=== PATIENT | female | born 1985 | race Caucasian/White ===

== ENCOUNTER 2017-06-30 08:00 | Outpatient (CLI) | payer OTHER ==
[2017-06-30 12:32] LABS: ALBUMIN 4.5 g/dL (3.2-5.5); ALBUMIN/GLOBULIN RATIO 1.8 (1.0-2.2); BILIRUBIN,TOTAL 0.4 mg/dL (0.2-1.0); CALCIUM 8.9 mg/dL (8.5-10.3); CREATININE 0.7 mg/dL (0.4-1.0)
[2017-06-30 12:41] LABS: BASOPHILS % (AUTO) 0.3 %; EOSINOPHILS # (AUTO) 0.1 10^3/uL (0.0-0.7); EOSINOPHILS % (AUTO) 1.2 %; HGB - HEMOGLOBIN 14.1 g/dL (12.0-16.0); LYMPHOCYTES # (AUTO) 1.5 10^3/uL (1.5-3.5); LYMPHOCYTES % (AUTO) 22.8 %; MEAN CORPUSCULAR HEMOGLOBIN 29.3 pg (27.0-31.0); MEAN CORPUSCULAR HGB CONC 32.6 g/dL (32.0-36.0); MEAN CORPUSCULAR VOLUME 89.7 fL (81.0-99.0); MONOCYTES # (AUTO) 0.4 10^3/uL (0.0-1.0); MONOCYTES % (AUTO) 6.6 %; NEUTROPHILS # (AUTO) 4.5 10^3/uL (1.5-6.6); NEUTROPHILS % (AUTO) 69.1 %; PLT - PLATELET COUNT 288 10^3/uL (130-450); RED BLOOD COUNT 4.82 10^6/uL (4.20-5.40); RED CELL DISTRIBUTION WIDTH 14.3 % (12.0-15.0); WHITE BLOOD COUNT 6.4 x10^3/uL (4.8-10.8)
[2017-06-30 12:46] LABS: T4 (THYROXINE) 6.04 ug/dL (6.09-12.23)
[2017-06-30 12:48] LABS: THYROID STIMULATING HORMONE 1.38 uIU/mL (0.34-5.60)
[2017-06-30 12:51] LABS: INR 1.1 (0.8-1.2); PT - PROTHROMBIN TIME 12.1 secs (9.9-12.6)
[2017-06-30 12:55] LABS: TOTAL T3 1.01 ng/mL (0.87-1.78)
== END 2017-06-30 08:01 | disposition home or self-care (01) ==
LOC: LAB.N 08:00
PROVIDERS: ATTEND Physician Assistant
DX: D47.3 Essential (hemorrhagic) thrombocythemia (principal); R42 Dizziness and giddiness; E55.9 Vitamin D deficiency, unspecified
CPT/HCPCS: 36415; 80053; 82306; 82607; 84207; 84436; 84443; 84480; 85025; 85610

== ENCOUNTER 2017-07-22 07:38 | Outpatient (CLI) | payer OTHER ==
--- NOTE | 2017-07-22 09:06 | MRI Preliminary Report ---
Exam: MRI BRAIN W/O IMPRESSION: 1. No acute abnormalities. No acute infarct, acute intracranial hemorrhage, midline shift or hydrocep halus. 2. Right lateral temporal encephalomalacia with susceptibility artifact, presumably from prior hemorr paxton or trauma. 3. Small focus of hemosiderin deposition in the posterior inferior right temporal occipital lobe, pre sumably from prior parenchymal microhemorrhage. 4. Lack of normal flow signal void in the right transverse sinus and sigmoid sinus bowel susceptibili ty possibly represents prior dural venous sinus thrombosis with partial recanalization versus hypopla gm/slow flow. Consider contrast enhanced MRI of the brain to evaluate for residual thrombus in the d ural venous sinus. Comparison with previous imaging (CT/MRI/angiogram) would be useful when available . 5. The superior sagittal sinus, straight sinus, left transverse sinus and left sigmoid sinus appear p atent on noncontrast MRI. [facility] SITE ID: [id number]
--- NOTE | 2017-07-22 09:19 | MRI Report ---
EXAM: MRI BRAIN WITHOUT CONTRAST EXAM DATE: 07/22/2017 08:44 AM. 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 COMPARISON: None available. TECHNIQUE: Multiplanar, multisequence T1-weighted and fluid-sensitive MR sequences of the brain were performed. Sequences optimized for routine evaluation. Other: None. IV Contrast: None. FINDINGS: There is encephalomalacia in the anterolateral right temporal lobe, most suspicious for prior hemorrh age. Small focus of susceptibility and T2 hypointensity seen in the posterior inferior right temporo-occip ital lobe (axial image 10 series 801 and coronal image 22 series 901), presumably from prior hemorrha ge. No acute infarct, midline shift or hydrocephalus. Flow void for the superior sagittal sinus, left transverse sinus, left sigmoid sinus appear normal. L ack of normal flow void for the right transverse sinus and right sigmoid sinus may represent prior si nus thrombosis with partial recanalization versus hypoplasia/slow flow. Orbits, optic nerve sheath complex, optic chiasm, pituitary, cavernous sinus and Meckel's cave appear normal. Marrow signal and extracranial soft tissue appear unremarkable. Scattered T2 hyperintensities in the posterior right mastoid air cells, possibly chronic mastoid effu florecita. Craniocervical junction and visualized upper cervical cord appear normal. Paranasal sinuses and masto id air cells are unremarkable. IMPRESSION: 1. No acute abnormalities. No acute infarct, acute intracranial hemorrhage, midline shift or hydrocep halus. 2. Right lateral temporal encephalomalacia with susceptibility artifact, presumably from prior hemorr paxton or trauma. 3. Small focus of hemosiderin deposition in the posterior inferior right temporo-occipital lobe, pres umably from prior parenchymal microhemorrhage. 4. Lack of normal flow signal void in the right transverse sinus and sigmoid sinus without susceptibi lity possibly represents prior dural venous sinus thrombosis with partial recanalization versus hypop lasia/slow flow. Consider contrast-enhanced MRI of the brain to evaluate for residual thrombus in the dural venous sinus. Comparison with previous imaging (CT/MRI/angiogram) would be useful when availab le. 5. The superior sagittal sinus, straight sinus, left transverse sinus and left sigmoid sinus appear p atent on noncontrast MRI. [facility] Referring Provider Line: [phone] SITE ID: [id number]
== END 2017-07-22 07:39 | disposition home or self-care (01) ==
LOC: DI 07:38
PROVIDERS: ATTEND Family Medicine
DX: G93.89 Other specified disorders of brain (principal)
CPT/HCPCS: 70551

== ENCOUNTER 2017-07-27 10:44 | Outpatient (CLI) | payer OTHER ==
[2017-07-27 20:05] LABS: FOLLICLE STIMULATING HORMONE 7.37 mIU/mL
[2017-07-27 20:06] LABS: LUTEINIZING HORMONE 7.25 mIU/mL
== END 2017-07-27 10:45 | disposition home or self-care (01) ==
LOC: LAB.N 10:44
PROVIDERS: ATTEND Obstetrics & Gynecology
DX: E28.2 Polycystic ovarian syndrome (principal)
CPT/HCPCS: 36415; 83001; 83002

== ENCOUNTER 2017-08-17 15:04 | Outpatient (CLI) | payer OTHER ==
--- NOTE | 2017-08-18 12:26 | Ultrasound Report ---
PELVIC ULTRASOUND: 08/17/2017 CLINICAL INDICATION: Polycystic ovary syndrome. TECHNIQUE: Transabdominal pelvic ultrasound performed for global evaluation. Transvaginal pelvic ultrasound performed for detailed evaluation. Real-time scanning performed and static images obtained. FINDINGS: The uterus is anteverted, measuring 8.4 x 4.9 x 3.8 cm. The endometrium measures 5 mm. An IUD is noted within the endometrial canal. A subserosal 1.8 x 2.0 x 1.2 cm leiomyoma is noted in the anterior myometrium. The right ovary measures 3.2 x 2.0 x 1.9 cm, and demonstrates follicles. The left ovary measures 3.3 x 2.6 x 2.5 cm, and demonstrates follicles. Trace free fluid is noted in the cul-de-sac. IMPRESSION: ANTERIOR SUBSEROSAL LEIOMYOMA. INTRAUTERINE DEVICE IN PLACE. NORMAL APPEARANCE OF THE OVARIES. TD: 08/18/2017 12:24
== END 2017-08-17 15:05 | disposition home or self-care (01) ==
LOC: DI 15:04
PROVIDERS: ATTEND Obstetrics & Gynecology
DX: E28.2 Polycystic ovarian syndrome (principal); D25.2 Subserosal leiomyoma of uterus; Z97.5 Presence of (intrauterine) contraceptive device
CPT/HCPCS: 76830; 76856

== ENCOUNTER 2017-08-19 13:42 | Outpatient (CLI) | payer OTHER ==
[2017-08-19] MEDS ORDERED: GADOBUTROL 7.5 MMOL/7.5 ML SYRINGE ONE (14:00)
[2017-08-19] MEDS ORDERED: GADOBUTROL 7.5 MMOL/7.5 ML SYRINGE IVP ONE (14:31)
--- NOTE | 2017-08-20 03:51 | MRI Report ---
EXAM: MRI BRAIN WITH CONTRAST EXAM DATE: 08/19/2017 02:34 PM. CLINICAL HISTORY: Migraine headaches. Right temporal abnormality. COMPARISON: Noncontrast brain MRI from 07/22/2017 and outside brain MRI from 02/23/2015. TECHNIQUE: Multiplanar T1-weighted postcontrast images of the brain were obtained after intravenous a dministration of 7.5 mL of Gadavist. Additional noncontrast brain MRI images were obtained of the fol lowing sequences: DWI, ADC map, and GRE. FINDINGS: Brain Volume: Right temporal volume loss is again demonstrated. Brain volume in the remainder of the brain is normal. Parenchyma: Right temporal encephalomalacia with mild surrounding gliosis and evidence of old hemorrh age is stable. No interval hemorrhage is evident on the GRE sequence compared to the brain MRI from 0 07/22/2017. After contrast administration, no abnormal brain parenchymal enhancement is appreciated. Ventricles/Cisterns: No hydrocephalus. No abnormal extra-axial fluid collection or hemorrhage. Orbits: Symmetric and unremarkable. Sella Turcica: The pituitary gland, cavernous sinuses, suprasellar cistern and optic chiasm are unrem arkable. IAC: No abnormal enhancement. Vasculature: There is normal contrast opacification in the intracranial arteries and dural venous sin uses. No filling defect is seen to suggest thrombus. Sinuses: Not well assessed due to lack of T2 images. Bones: No focal pathologic appearing marrow signal changes. IMPRESSION: 1. Stable right temporal encephalomalacia and gliosis with evidence of old hemorrhage. 2. No abnormal intracranial enhancement. 3. No interval hemorrhage compared to the brain MRI from 07/22/2017. 4. Patent intracranial arteries and dural venous sinuses without evidence of thrombus. [facility] Referring Provider Line: [phone] SITE ID: [id number]
== END 2017-08-19 13:43 | disposition home or self-care (01) ==
LOC: DI 13:42
PROVIDERS: ATTEND Family Medicine
DX: G93.89 Other specified disorders of brain (principal); R93.0 Abnormal findings on diagnostic imaging of skull and head, not elsewhere classified; G43.109 Migraine with aura, not intractable, without status migrainosus; R42 Dizziness and giddiness; Z86.73 Personal history of transient ischemic attack (TIA), and cerebral infarction without residual deficits
CPT/HCPCS: 70552; A9585

== ENCOUNTER 2018-04-12 16:36 | Outpatient (CLI) | payer OTHER | END 2018-04-12 23:59 | disposition home or self-care (01) | LOC: LAB.R 16:36 | PROVIDERS: ATTEND Obstetrics & Gynecology | DX: Z30.430 Encounter for insertion of intrauterine contraceptive device (principal) | CPT/HCPCS: 87491; 87591 ==

== ENCOUNTER 2018-05-01 08:00 | Outpatient (CLI) | payer OTHER | END 2018-05-01 23:59 | LOC: LAB.N 08:00 | PROVIDERS: ATTEND Family Medicine | DX: Z23 Encounter for immunization (principal) | CPT/HCPCS: 86787 ==